=== PATIENT | female | born 1995 | race American Indian/Alaskan Native ===

== ENCOUNTER 2017-04-06 19:16 | Emergency (ER) | payer OTHER ==
[2017-04-06 21:04] LABS: Basophils % (Auto) 0.8 % (0.0-1.8); Eosinophils % (Auto) 1.8 % (0.0-4.3); Hematocrit 36.7 % (30.3-42.9); Hemoglobin 12.1 gm/dl (10.1-14.3); Mean Corpuscular HGB Conc 33 % (30-34); Mean Corpuscular Hemoglobin 27 pg (28-32); Mean Corpuscular Volume 81 fl (79-97); Platelet Count 210 K/mm3 (140-440); Red Blood Count 4.53 M/mm3 (3.65-5.03); Red Cell Distribution Width 14.9 % (13.2-15.2); White Blood Count 9.6 K/mm3 (4.5-11.0)
--- NOTE | 2017-04-06 21:11 | Emergency Department Report ---
HPI - General Chief Complaint: Vaginal Bleeding Time Seen by Provider: 04/06/17 21:00 - [facility] HPI: Room 8 The patient is a 21-year-old female presenting with a chief complaint of vaginal bleeding and passage of tissue. The patient states she took a CHF sent home which was positive on 03/15/2017. The patient states yesterday she developed some vaginal spotting but no pain. The patient states today at work she developed pain in the lower abdomen and when she went home she felt a delaney of fluid. Patient states she went to the bathroom and noticed a lot of blood so she began to push and shakes. A mass of bloody tissue. The patient states bloody mass broke free with her still a "Strand" coming out of her vagina. The patient now complains of lower abdominal pain gives a score of 10/10. Violent. The patient is 8-5/7 weeks gestational age Location: Pelvis Duration: [see above] Quality: Pain Severity: 10/10 Modifying factors: [see above] Context: [see above] Mode of transportation: [not driving] ED Past Medical Hx - Past Medical History Additional medical history: Herpes 2 - Surgical History Past Surgical History?: No - Family History Family history: no significant - Social History Smoking Status: Never Smoker Substance Use Type: None - Medications Home Medications: Home Medications Medication Instructions Recorded Confirmed Last Taken Type HYDROcodone/APAP 5-325 [[place] 1 - 2 each PO Q6HR PRN #14 tablet 04/07/17 Unknown Rx 5/325] Ibuprofen [Motrin 800 MG tab] 800 mg PO Q8HR PRN #10 tablet 04/07/17 Unknown Rx Misoprostol [Cytotec] 400 mcg PO Q4H #6 tablet 04/07/17 Unknown Rx ED Review of Systems ROS: Stated complaint: VAGINAL BLEEDING Other details as noted in HPI Comment: All other systems reviewed and negative Constitutional: denies: chills, fever Eyes: denies: eye pain, eye discharge, vision change ENT: denies: ear pain, throat pain Respiratory: denies: cough, shortness of breath, wheezing Cardiovascular: denies: chest pain, palpitations Endocrine: no symptoms reported Gastrointestinal: abdominal pain Genitourinary: abnormal menses Musculoskeletal: denies: back pain, joint swelling, arthralgia Skin: denies: rash, lesions Neurological: denies: headache, weakness, paresthesias Psychiatric: denies: anxiety, depression Hematological/Lymphatic: denies: easy bleeding, easy bruising Physical Exam - Physical Exam Vital Signs: Vital Signs 04/06/17 19:27 Temperature 98.6 F Pulse Rate 91 H Respiratory 16 Rate Blood Pressure 123/80 Blood Pressure 123/80 [Left] O2 Sat by Pulse 100 Oximetry Physical Exam: GENERAL: The patient is well-developed well-nourished female lying on stretcher not appearing to be in acute distress. [] HEENT: Normocephalic. Atraumatic. Extraocular motions are intact. Patient has moist mucous membranes. NECK: Supple. Trachea midline CHEST/LUNGS: There is no respiratory distress noted. ABDOMEN: Abdomen is soft, with lower abdominal discomfort. There is no abdominal distention. SKIN: There is no rash. There is no edema. There is no diaphoresis. NEURO: The patient is awake, alert, and oriented. The patient is cooperative. The patient has normal speech MUSCULOSKELETAL: There is no evidence of acute injury. PELVIC: No umbilical cord seen protruding from the vagina. Vaginal vault filled with moderate to large amount of blood clots ED Course Vital Signs 04/06/17 19:27 Temperature 98.6 F Pulse Rate 91 H Respiratory 16 Rate Blood Pressure 123/80 Blood Pressure 123/80 [Left] O2 Sat by Pulse 100 Oximetry - Consultations Consultation #1: 04/06/17 23:41 WAYS OPERATOR paged 04/06/17 23:[address] Mota- recommends administering Cytotec 800 g ME and he will come evaluate ED Medical Decision Making - Lab Data Result diagrams: 04/06/17 20:39 04/06/17 20:39 - Radiology Data Radiology results: report reviewed (pelvic ultrasound), image reviewed (pelvic ultrasound) Pelvic ultrasound (read by radiologist) (-no evidence of IUP. 8.7 cm echogenic mass in the vagina May represent a blood clot or products of conception. - Differential Diagnosis incomplete , threatened , spontaneous Critical care attestation.: If time is entered above; I have spent that time in minutes in the direct care of this critically ill patient, excluding procedure time. ED Disposition Clinical Impression: Spontaneous Disposition: DC-01 TO HOME OR SELFCARE Is pt being admited?: No Does the pt Need Aspirin: No Condition: Stable Instructions: Spontaneous Miscarriage (ED) Additional Instructions: Return to the emergency department immediately should you develop worsening symptoms, fever, inability to tolerate food or liquid or any other concerns. Prescriptions: HYDROcodone/APAP 5-325 [[place] 5/325] 1 - 2 each PO Q6HR PRN #14 tablet PRN Reason: Pain Ibuprofen [Motrin 800 MG tab] 800 mg PO Q8HR PRN #10 tablet PRN Reason: Pain Misoprostol [Cytotec] 400 mcg PO Q4H #6 tablet Referrals: PRIMARY CAREMD [Primary Care Provider] - 3-5 Days ANDRES MOTA MD [Staff Physician] - 3-5 Days (Dr. Mota is an WAYS OPERATOR. Please follow up with him for further evaluation) Time of Disposition: 01:44
[2017-04-06 21:21] LABS: Anion Gap 17 mmol/L; Blood Urea Nitrogen 9 mg/dL (7-17); Calcium 9.5 mg/dL (8.4-10.2); Carbon Dioxide 23 mmol/L (22-30); Chloride 101.7 mmol/L (98-107); Glucose 114 mg/dL (65-100); Potassium 3.3 mmol/L (3.6-5.0); Sodium 138 mmol/L (137-145)
--- NOTE | 2017-04-06 23:34 | Ultrasound Report ---
FINAL REPORT EXAM: US OB \T\lt; = 14 WEEKS FETUS HISTORY: Vaginal Bleeding TECHNIQUE: Real-time sonography was performed of the pelvis transabdominally. Images are submitted for interpretation. Quantitative beta HCG is 4820 PRIORS: None. FINDINGS: The uterus measures 9.7 x 3.8 x 5.7 cm. The endometrium measures 1.7 cm in thickness. There is no evidence of intrauterine gestation. There is an oval echogenic mass in the vagina measuring 8.0 x 8.7 x 5.3 cm. The right ovary was not identified. The left ovary appears normal measuring 2.7 x 1.7 x 2.3 cm. There is no free pelvic fluid. IMPRESSION: 1. No evidence of IUP 2. 8.7 cm echogenic mass in the vagina may represent a blood clot or products of conception. 3. Close clinical follow-up, serial quantitative beta HCG levels and follow-up ultrasound recommended.
[2017-04-06] MEDS ORDERED: CYTOTEC PR ONE (23:44)
--- NOTE | 2017-04-07 00:36 | Short Stay Summary ---
Short Stay Documentation Date of service: 04/07/17 Narrative H&P: Missed AB at ~ 8 wks 21 y/o at ~ 8-9 weeks presents with above complaints and issues. She has no physician. It appears she passed IUP in the bathroom at home. She presents to the ED due to continued bleeding. Vaginal ultrasound obtained here shows no evidence of IUP, 8.7 cm echogenic mass in the vagina may represent blood clot or products of conception. Gynhx:HSV 2 Medhx/Sughx:None Meds:None ALL:NKDA Fshx:Single, none smoker On exam, black female in no acute distress (Oriented 3 Vitals Stable Abd soft Abdomen exam showed lemon sized blood clot in the vaginal vault We started by placing 800 g of Cytotec NV Using sponge stick and gauze, vaginal vault was evacuated of blood Vaginal vault also contained tissue-like material definitely a products of conception No more active bleeding noted from cervical os after evacuation of clots A: Missed AB P: -I believe most of the products from the vagina had been removed -Recommend observation for an hour -Discharged home with Cytotec 400 g every 4 almost 3 doses if vital stable and no more bleeding noted - History Past Medical History: No medical history Past Surgical History: No surgical history Social history: single, full code, no smoking, no alcohol abuse, no prescription drug abuse, no IV drug use - Allergies and Medications Current Medications: Allergies No Known Allergies Allergy (Verified 04/06/17 23:45) Home Medications Medication Instructions Recorded Confirmed Last Taken Type No Known Home Medications [No 04/06/17 04/06/17 Unknown History Reported Home Medications] - Physical exam General appearance: no acute distress, well-nourished Lungs: Clear to auscultation, Normal air movement Heart: Regular rate, Normal S1, Normal S2 Gastrointestinal: normal, normoactive bowel sounds, no tenderness, no guarding Female Genitourinary: normal, other (see HPI) Neurological: Normal speech - Brief post op/procedure progress note Date of procedure: 04/07/17 Pre-op diagnosis: Missed AB Post-op diagnosis: same Procedure: Evacuation of retained products of conception in the emergency room Anesthesia: none Findings: Lemon Sized blood clots in the vaginal vault, obvious tissue-like material was likely retained products of conception, no active bleeding noted from cervical os Surgeon: ANDRES MOTA Estimated blood loss: other (~ 200 mls) Pathology: list (products of conception) Specimen disposition: to lab Condition: stable - Disposition Condition at discharge: Stable Short Stay Discharge Plan Follow up with: PRIMARY CARE, [Primary Care Provider] - 3-5 Days
[2017-04-07 00:42] LABS: Bacteria,Urine 4+ /HPF (Negative)
[2017-04-07 00:43] LABS: RBC,Urine > 182.0 /HPF (0.0-6.0)
[2017-04-07 00:48] LABS: Bilirubin,Urine Negative (Negative); Blood,Urine Moderate (Negative); Ketones,Urine Negative (Negative); Leukocyte Esterase,Urine Negative (Negative); Nitrite,Urine Negative (Negative); Urobilinogen,Urine < 0.2 mg/dL (<2.0)
[2017-04-07 01:39] VITALS: BP 115/58
[2017-04-07] MEDS ORDERED: NORCO 5/325 PO ONE (01:44)
== END 2017-04-07 02:09 | disposition home or self-care (01) ==
LOC: ED 19:16
DX: O03.9 Complete or unspecified spontaneous abortion without complication (principal); Z3A.14 14 weeks gestation of pregnancy
CPT/HCPCS: 36415; 76801; 80048; 81001; 84702; 85025; 86850; 86900; 86901; 88305